=== PATIENT | male | born 1990 | race Caucasian/White ===

== ENCOUNTER 2021-01-09 01:45 | Emergency (ER) | payer SELFPAY ==
[2021-01-09] MEDS ORDERED: MORPHINE 4 MG/ML SYR ONE (02:44)
[2021-01-09] MEDS ORDERED: HYDROCODONE/APAP 5/325 MG TAB ONE (03:41)
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
[2021-01-09 07:22] VITALS: TEMP 99.2
[2021-01-09 07:29] VITALS: BP 125/80; O2SAT 98
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
== END 2021-01-09 07:11 | disposition home or self-care (01) ==
LOC: ER 01:45
DX: S50.02XA Contusion of left elbow, initial encounter (principal); Y04.0XXA Assault by unarmed brawl or fight, initial encounter
CPT/HCPCS: 96372; 99284